=== PATIENT | male | born 1995 | race Caucasian/White ===

== ENCOUNTER 2022-05-25 07:56 | Emergency (ER) | payer MEDICAID, OTHER ==
[~2022-05-25] VITALS: Ht 177.8 cm; Wt 86.4 kg
[2022-05-25 08:03] VITALS: BP 126/71
[2022-05-25] MEDS ORDERED: PERM60CR19 TP (08:30)
[2022-05-25] MEDS ORDERED: DIPH50CA37 PO (08:30)
== END 2022-05-25 09:01 | disposition home or self-care (01) ==
LOC: EMS 08:13
DX: L30.9 Dermatitis, unspecified (principal)
CPT/HCPCS: 99282; Z7502

== ENCOUNTER 2022-05-27 00:19 | Emergency (ER) | payer MEDICAID ==
[~2022-05-27] VITALS: Ht 177.8 cm; Wt 80.0 kg
[~2022-05-27 00:19] MED LIST: DIPH50CA37 PO; PERM60CR19 TP
[2022-05-27 00:29] VITALS: BP 125/68
== END 2022-05-27 01:49 | disposition home or self-care (01) ==
LOC: EMS 00:21
DX: B86 Scabies (principal)
CPT/HCPCS: 99282; Z7502

== ENCOUNTER 2022-05-29 17:08 | Emergency (ER) | payer MEDICAID ==
[~2022-05-29] VITALS: Ht 177.8 cm; Wt 86.4 kg
[2022-05-29] MEDS ORDERED: PRED-554 PO (21:05)
[2022-05-29 21:07] VITALS: BP 135/90
== END 2022-05-29 22:00 | disposition home or self-care (01) ==
LOC: EMS 17:13
DX: L30.9 Dermatitis, unspecified (principal)
CPT/HCPCS: 99283